=== PATIENT | male | born 1995 | race Caucasian/White ===

== ENCOUNTER 2021-12-03 08:21 | Outpatient (CLI) | payer OTHER, SELFPAY ==
[2021-12-03 12:21] LABS: Absolute Lymphocyte Count 1.82 X10^3/uL (0.83-4.51); Absolute Neutrophil Count 2.1 X10^3/uL (2.0-7.7); Basophil# 0.03 X10^3/uL; Basophil% 0.7 % (0-1); Eosinophil# 0.08 X10^3/uL; Eosinophils% 1.8 % (0-5); Hematocrit 42.2 % (40-54); Hemoglobin 13.9 g/dL (13.0-16.5); Lymphocyte # 1.82 X10^3/ul (0.83-4.51); Lymphocyte % 40.7 % (19-41); Mean Corp Hgb Conc 32.9 g/dL (32-36); Mean Corpuscular Hgb 30.5 pg (27.0-32.0); Mean Corpuscular Volume 92.5 fL (80-94); Mean Platelet Vol. 11.9 fl (6.2-12.0); Monocyte# 0.41 X10^3/uL; Monocyte% 9.2 % (0-10); NRBC Flagged by Analyzer 0 % (0-5); Neutrophil # 2.13 X10^3/uL (2.7-7.7); Neutrophil % 47.6 % (47-70); Platelet Count 159 K/mm3 (150-450); RBC Distribution Width CV 11.9 % (11.6-14.6); Red Blood Count 4.56 M/mm3 (4.6-6.2); White Blood Count 4.5 K/mm3 (4.4-11.0)
[2021-12-03 12:37] LABS: Vitamin D,25 Hydroxy 22.8 ng/mL
[2021-12-03 13:03] LABS: ALB/GLOB Ratio 1.4 RATIO (0.9-2.4); AST(SGOT) 22 U/L (15-37); Alanine Aminotransfer ALT/SGPT 37 U/L (16-61); Albumin, Serum 4.3 g/dL (3.2-5.0); Alkaline Phosphatase 72 U/L (45-117); Anion Gap 4 (5-15); BUN 19 mg/dL (7-18); BUN/Creat Ratio 19.1 RATIO (10-20); Calcium,Total 9.2 mg/dL (8.5-10.1); Chloride 106 mmol/L (98-107); Cholesterol 153 mg/dL (200); EST Glomerular Filtration Rate 98 mL/min (>60); Est Glom Filt Rate - Afr Amer 118 mL/min (>60); Free T3 3.1 pg/mL (2.18-3.98); Glucose 86 mg/dL (74-106); High Density Lipoprotein 61 mg/dL; Potassium 4.4 mmol/L (3.5-5.1); Protein, Total 7.3 g/dL (6.4-8.2); Sodium Level 138 mmol/L (136-145); T4 Free Direct 0.92 ng/dL (0.76-1.46); Thyroid Stim Hormone (TSH) 1.49 uIU/mL (0.358-3.74); Triglycerides 52 mg/dL; Very Low Density Lipoprotein 10 mg/dL (5-40)
== END 2021-12-03 23:59 | disposition home or self-care (01) ==
LOC: BIMLAB 08:22
PROVIDERS: PCP Internal Medicine; Referring Provider Internal Medicine; Visit Provider Internal Medicine
DX: F41.9 Anxiety disorder, unspecified (principal); E55.9 Vitamin D deficiency, unspecified; F32.A Depression, unspecified; Z13.220 Encounter for screening for lipoid disorders; Z13.1 Encounter for screening for diabetes mellitus
CPT/HCPCS: 36415; 80053; 80061; 82306; 83036; 84439; 84443; 84481; 85025

== ENCOUNTER → 2024-02-08 | Outpatient (CLI) | payer OTHER, SELFPAY ==
[2024-02-08 10:41] LABS: Absolute Lymphocyte Count 1.74 X10^3/uL (0.83-4.51); Absolute Neutrophil Count 2.1 X10^3/uL (2.0-7.7); Basophil# 0.02 X10^3/uL; Basophil% 0.5 % (0-1); Eosinophil# 0.04 X10^3/uL; Eosinophils% 0.9 % (0-5); Hemoglobin 13.9 g/dL (13.0-16.5); Lymphocyte # 1.74 X10^3/ul (0.83-4.51); Lymphocyte % 40.7 % (19-41); Mean Corp Hgb Conc 32.3 g/dL (32-36); Mean Corpuscular Volume 92.9 fL (80-94); Mean Platelet Vol. 11.6 fl (6.2-12.0); Monocyte# 0.35 X10^3/uL; Monocyte% 8.2 % (0-10); NRBC Flagged by Analyzer 0 % (0-5); Neutrophil # 2.11 X10^3/uL (2.7-7.7); Neutrophil % 49.5 % (47-70); Platelet Count 197 K/mm3 (150-450); RBC Distribution Width CV 12.4 % (11.6-14.6); RBC Distribution Width SD 42.3 fl (35.1-43.9); Red Blood Count 4.63 M/mm3 (4.6-6.2); White Blood Count 4.3 K/mm3 (4.4-11.0)
[2024-02-08 11:02] LABS: Vitamin D,25 Hydroxy 33.2 ng/mL
[2024-02-08 11:11] LABS: ALB/GLOB Ratio 1.4 RATIO (0.9-2.4); AST(SGOT) 22 U/L (15-37); Alanine Aminotransfer ALT/SGPT 27 U/L (16-61); Albumin, Serum 4.3 g/dL (3.2-5.0); Alkaline Phosphatase 75 U/L (45-117); Anion Gap 1 (5-15); BUN 18 mg/dL (7-18); BUN/Creat Ratio 16.1 RATIO (10-20); Calcium,Total 9.3 mg/dL (8.5-10.1); Chloride 108 mmol/L (98-107); Cholesterol 148 mg/dL (200); Creatinine, Serum 1.12 mg/dL (0.70-1.30); EST Glomerular Filtration Rate 84 mL/min (>60); Est Glom Filt Rate - Afr Amer 102 mL/min (>60); Glucose 83 mg/dL (74-106); High Density Lipoprotein 58 mg/dL; Potassium 4.1 mmol/L (3.5-5.1); Protein, Total 7.3 g/dL (6.4-8.2); Sodium Level 138 mmol/L (136-145); Thyroid Stim Hormone (TSH) 1.17 uIU/mL (0.358-3.74); Triglycerides 50 mg/dL; Very Low Density Lipoprotein 10 mg/dL (5-40)
== END | disposition home or self-care (01) ==
LOC: LAB 09:52
PROVIDERS: PCP Internal Medicine; Visit Provider Internal Medicine
DX: Z00.00 Encounter for general adult medical examination without abnormal findings (principal); E55.9 Vitamin D deficiency, unspecified; F41.9 Anxiety disorder, unspecified; F32.A Depression, unspecified; Z13.220 Encounter for screening for lipoid disorders
CPT/HCPCS: 36415; 80053; 80061; 82306; 84443; 85025

== ENCOUNTER → 2025-03-27 | Outpatient (CLI) | payer OTHER, SELFPAY ==
[2025-03-27 11:26] LABS: Hematocrit 43.4 % (40-54); Hemoglobin 14.7 g/dL (13.0-16.5); Immature Granulocytes Count 0.010 X10^3/uL (0.0-0.0); Mean Corp Hgb Conc 33.9 g/dL (32-36); Mean Corpuscular Volume 91.4 fL (80-94); Mean Platelet Vol. 11.4 fl (6.2-12.0); NRBC Flagged by Analyzer 0 % (0-5); Platelet Count 191 K/mm3 (150-450); RBC Distribution Width CV 11.9 % (11.6-14.6); RBC Distribution Width SD 39.8 fl (35.1-43.9); Red Blood Count 4.75 M/mm3 (4.6-6.2); White Blood Count 4.6 K/mm3 (4.4-11.0)
[2025-03-27 12:18] LABS: Cholesterol 145 mg/dL (<=200); Low Density Lipoprotein Calc. 72 mg/dL; Triglycerides 45 mg/dL; Very Low Density Lipoprotein 9 mg/dL (5-40); cholesterol:hdl ratio screen 2.26
[2025-03-27 12:32] LABS: AST(SGOT) 21 U/L (<=37); Alanine Aminotransfer ALT/SGPT 15 U/L (<=46); Albumin, Serum 4.8 g/dL (3.5-5.0); Alkaline Phosphatase 63 U/L (40-129); Anion Gap 12 (5-15); BUN 18 mg/dL (4-19); BUN/Creat Ratio 17.0 RATIO (10-20); Calcium,Total 9.5 mg/dL (7.6-11.0); Carbon Dioxide 24.6 mmol/L (21.0-32.0); Chloride 104 mmol/L (98-108); Globulin 2.3 g/dL (2.2-4.2); Glucose 89 mg/dL (70-99); Potassium 4.5 mmol/L (3.3-5.1)
[2025-03-27 12:51] LABS: Vitamin D,25 Hydroxy 32.1 ng/mL (30-100)
--- OUTSIDE RECORDS SUMMARY | 2025-03-27 18:52 | XMS RPT_ITS | CCD ---
Author Organization [facility] Care Team Providers Care Field Worker Name Role Phone Dr. Mari Blackmon Attending Provider [phone] Mari Blackmon Attending Unavailable Mari Blackmon Primary Care Unavailable Mari Blackmon Attending Unavailable Mari Blackmon Attending Unavailable Mari Blackmon Primary Care Unavailable Neymar CHEN, Dr. Guerra Primary Care Provider [phone] Neymar CHEN, Dr. Guerra Attending Provider Allergies Allergy Classification Reported Allergen(s) Allergy Type Date of Onset Reaction(s) Facility (3 sources) Soy protein; Translations: [soy] Allergy to substance 2 dives, difficulty breathing [facility] Medications Current Medications Medication Drug Class(es) Dates Sig (Normalized) Sig (Original) cetirizine hydrochloride 10 mg oral tablet (2 sources) Histamine-1 Receptor Antagonist Start: 11-26-2021 take 10 mg by mouth once daily Cetirizine Active 10 MG PO DAILY November 26, 2021 9:14am cholecalciferol 0.025 mg oral tablet (1 source) Vitamin D Start: 02-08-2024 take 1 tablet by mouth once daily Cholecalciferol (Vitamin D3) 25 mcg (1,000 unit) tablet Active 25 ug PO DAILY February 08, 2024 12:00am Multivitamin preparation (1 source) Start: 11-26-2021 take 1 tablet by mouth once daily Multivitamin Active 1 TABLET PO DAILY November 26, 2021 9:13am sertraline 50 mg oral tablet (8 sources) Serotonin Reuptake Inhibitor Start: 02-24-2023 End: 03-27-2025 take 1 tablet by mouth once daily Sertraline 50 mg tablet Active 50 mg PO DAILY 90 3 March 27, 2025 9:47am Start: 11-26-2021 take 75 mg by mouth once daily Sertraline Active 75 MG PO DAILY November 26, 2021 9:14am Start: 11-26-2021 End: 02-24-2023 Sertraline 50 mg tablet Disc ontinued 75 mg PO DAILY 120 3 February 12, 2022 9:10am February 24, 2023 8:02am Completed/Discontinued Medications Medication Drug Class(es) Dates Sig (Normalized) Sig (Original) Multivitamin tablet (1 source) Start: 11-26-2021 End: 02-08-2024 Multivitamin tablet Discontinued 1 {tbl} PO DAILY November 26, 2021 12:00am February 08, 2024 8:49am promethazine hydrochloride 25 mg oral tablet (1 source) Phenothiazine Start: 08-26-2022 End: 02-24-2023 take 1 tablet by mouth three times daily as needed for nausea and vomiting Promethazine 25 mg tablet Discontinued 25 mg PO THREE TIMES A DAY as needed for nausea and vomiting 14 0 August 26, 2022 1:00am February 24, 2023 8:02am Problems Active Problems Problem Classification Problem Date Documented Date Episodic/Chronic Anxiety disorders (4 sources) Mixed anxiety and depressive disorder; Translations: [Anxiety disorder, unspecified] Onset: 02-08-2024 Chronic Mood disorders (1 source) Mood disorders; Translations: [Depression, unspecified] Onset: 02-08-2024 Noninfectious gastroenteritis (1 source) Gastroenteritis; Translations: [Noninfective gastroenteritis and colitis, unspecified] 08-26-2022 Episodic Nutritional deficiencies (3 sources) Vitamin D deficiency; Translations: [Vitamin D deficiency, unspecified] Onset: 02-08-2024 11-26-2021 Chronic Other connective tissue disease (1 source) Cyst of tendon sheath; Translations: [Other specified disorders of synovium and tendon, unspecified site] 02-24-2023 Episodic Other connective tissue disease (1 source) Foot pain; Translations: [Pain in right foot] 03-27-2025 Episodic Other screening for suspected conditions (not mental disorders or infectious disease) (2 sources) Patient encounter status; Translations: [Encounter for screening for diabetes mellitus] 11-26-2021 Episodic Unclassified (1 source) Cyst of tendon sheath Unclassified (1 source) Right foot pain Unclassified (1 source) M67.80 - Other specified disorders of synovium and tendon, unspecified site,M79.671 - Pain in right foot Past or Other Problems Problem Classification Problem Date Documented Da te Episodic/Chronic Other connective tissue disease (1 source) Other specified disorders of synovium and tendon, unspecified site; Translations: [Other specified disorders of synovium and tendon, unspecified site] Onset: 02-24-2023 Episodic Results Test Name Value Interpretation Reference Range Facility CBC W/Diff, Automatedon 01-14 Absolute Lymph 1.74 X10 3/uL Normal 0.83-4.51 [facility] Comment on above: Performed By: #### L 500.4050, L506.1000, L100.0100, L501.9520, L500.4100 #### [facility] [address] [place], [address] Absolute Neut 2.1 X10 3/uL Normal 2.0-7.7 [facility] Comment on above: Performed By: #### L 500.4050, L506.1000, L100.0100, L501.9520, L500.4100 #### [facility] [address] [place], [address] Basophils/100 WBC (Bld) 0.5 % Normal 0-1 [facility] Comment on above: Performed By: #### L 500.4050, L506.1000, L100.0100, L501.9520, L500.4100 #### [facility] [address] [place], [address] Eosinophils/100 WBC (Bld) 0.9 % Normal 0-5 [facility] Comment on above: Performed By: #### L 500.4050, L506.1000, L100.0100, L501.9520, L500.4100 #### [facility] [address] [place], [address] Erythrocyte distribution width (RBC) [Ratio] 12.4 % Normal 11.6-14.6 [facility] Comment on above: Performed By: #### L 500.4050, L506.1000, L100.0100, L501.9520, L500.4100 #### [facility] [address] [place], [address] Hematocrit (Bld) [Volume fraction] 43.0 % Normal 40-54 [facility] Comment on above: Performed By: #### L 500.4050, L506.1000, L100.0100, L501.9520, L500.4100 #### [facility] [address] [place], [address] Hemoglobin (Bld) [Mass/Vol] 13.9 g/dL Normal 13.0-16.5 [facility] Comment on above: Performed By: #### L 500.4050, L506.1000, L100.0100, L501.9520, L500.4100 #### [facility] [address] [place], [address] IG% 0.200 Normal 0.0-0.9 [facility] Comment on above: Result Comment: IG% - Immature Granulocytes (promyelocytes, myelocytes and metamyelocytes) > 1% indicates that a LEFT SHIFT is Present. Performed By: #### L 500.4050, L506.1000, L100.0100, L501.9520, L500.4100 #### [facility] [address] [place], [address] Lymphocytes/100 WBC (Bld) 40.7 % Normal 19-41 [facility] Comment on above: Performed By: #### L 500.4050, L506.1000, L100.0100, L501.9520, L500.4100 #### [facility] [address] [place], [address] MCH (RBC) [Entitic mass] 30.0 pg Normal 27.0-32.0 [facility] Comment on above: Performed By: #### L 500.4050, L506.1000, L100.0100, L501.9520, L500.4100 #### [facility] [address] [place], [address] MCHC (RBC) [Mass/Vol] 32.3 g/dL Normal 32-36 [facility] Comment on above: Performed By: #### L 500.4050, L506.1000, L100.0100, L501.9520, L500.4100 #### [facility] [address] [place], [address] MCV (RBC) [Entitic vol] 92.9 fL Normal 80-94 [facility] Comment on above: Performed By: #### L 500.4050, L506.1000, L100.0100, L501.9520, L500.4100 #### [facility] [address] [place], [address] Monocytes/100 WBC (Bld) 8.2 % Normal 0-10 [facility] Comment on above: Performed By: #### L 500.4050, L506.1000, L100.0100, L501.9520, L500.4100 #### [facility] [address] [place], [address] Neutrophils/100 WBC (Bld) 49.5 % Normal 47-70 [facility] Comment on above: Performed By: #### L 500.4050, L506.1000, L100.0100, L501.9520, L500.4100 #### [facility] [address] [place], [address] Nucleated RBC (Bld) [#/Vol] 0 10*3/uL Normal 0-5 [facility] Comment on above: Performed By: #### L 500.4050, L506.1000, L100.0100, L501.9520, L500.4100 #### [facility] [address] [place], [address] Platelet mean volume (Bld) [Entitic vol] 11.6 fL Normal 6.2-12.0 [facility] Comment on above: Performed By: #### L 500.4050, L506.1000, L100.0100, L501.9520, L500.4100 #### [facility] [address] [place], [address] Platelets (Bld) [#/Vol] 197 10*3/uL Normal 150-450 [facility] Comment on above: Performed By: #### L 500.4050, L506.1000, L100.0100, L501.9520, L500.4100 #### [facility] [address] [place], [address] RBC (Bld) [#/Vol] 4.63 10*6/uL Normal 4.6-6.2 [facility] Comment on above: Performed By: #### L 500.4050, L506.1000, L100.0100, L501.9520, L500.4100 #### [facility] [address] [place], [address] RDW SD 42.3 fl Normal 35.1-43.9 [facility] Comment on above: Performed By: #### L 500.4050, L506.1000, L100.0100, L501.9520, L500.4100 #### [facility] [address] [place], [address] WBC (Bld) [#/Vol] 4.3 10*3/uL Low 4.4-11.0 [facility] Comment on above: Performed By: #### L 500.4050, L506.1000, L100.0100, L501.9520, L500.4100 #### [facility] [address] [place], [address] Comprehensive Metabolic Prof cton 02-08-2024 Albumin [Mass/Vol] 4.3 g/dL Normal 3.2-5.0 [facility] Comment on above: Performed By: #### L 500.4050, L506.1000, L100.0100, L501.9520, L500.4100 #### [facility] [address] [place], [address] Albumin/Globulin [Mass ratio] 1.4 {ratio} Normal 0.9-2.4 [facility] Comment on above: Performed By: #### L 500.4050, L506.1000, L100.0100, L501.9520, L500.4100 #### [facility] [address] [place], [address] ALK P 75 U/L Normal 45-117 [facility] Comment on above: Performed By: #### L 500.4050, L506.1000, L100.0100, L501.9520, L500.4100 #### [facility] [address] [place], [address] ALT [Catalytic activity/Vol] 27 U/L Normal 16-61 [facility] Comment on above: Performed By: #### L 500.4050, L506.1000, L100.0100, L501.9520, L500.4100 #### [facility] [address] [place], [address] AST [Catalytic activity/Vol] 22 U/L Normal 15-37 [facility] Comment on above: Performed By: #### L 500.4050, L506.1000, L100.0100, L501.9520, L500.4100 #### [facility] [address] [place], [address] Bilirubin [Mass/Vol] 0.50 mg/dL Normal 0.20-1.00 [facility] Comment on above: Result Comment: For patients on eltrombopag therapy, use of Dimension [place] TBIL is not recommended. Performed By: #### L 500.4050, L506.1000, L100.0100, L501.9520, L500.4100 #### [facility] [address] [place], [address] BUN/CRE 16.1 RATIO Normal 10-20 [facility] Comment on above: Performed By: #### L 500.4050, L506.1000, L100.0100, L501.9520, L500.4100 #### [facility] [address] [place], [address] CA,Total 9.3 mg/dL Normal 8.5-10.1 [facility] Comment on above: Performed By: #### L 500.4050, L506.1000, L100.0100, L501.9520, L500.4100 #### [facility] [address] [place], [address] Chloride [Moles/Vol] 108 mmol/L High 98-107 [facility] Comment on above: Performed By: #### L 500.4050, L506.1000, L100.0100, L501.9520, L500.4100 #### [facility] [address] [place], [address] CO2 [Moles/Vol] 29.0 mmol/L Normal 21.0-32.0 [facility] Comment on above: Performed By: #### L 500.4050, L506.1000, L100.0100, L501.9520, L500.4100 #### [facility] [address] [place], [address] Creatinine [Mass/Vol] 1.12 mg/dL Normal 0.70-1.30 [facility] Comment on above: Result Comment: The validity of the calculated GFR GFRAA in patients over 70 years has not been determined. Clinical correlation is essential. Performed By: #### L 500.4050, L506.1000, L100.0100, L501.9520, L500.4100 #### [facility] [address] [place], [address] EST GFR - AA 102 mL/min Normal >60 [facility] Comment on above: Result Comment: Afri can Kosovan GFR Calc Performed By: #### L 500.4050, L506.1000, L100.0100, L501.9520, L500.4100 #### [facility] [address] [place], [address] GAP 1 Low 5-15 [facility] Comment on above: Performed By: #### L 500.4050, L506.1000, L100.0100, L501.9520, L500.4100 #### [facility] [address] [place], [address] GFR/1.73 sq M.predicted among non-blacks MDRD (S/P/Bld) [Vol rate/Area] 84 mL/min/{1.73_m2} Normal >60 [facility] Comment on above: Result Comment: Non- GFR Calc Performed By: #### L 500.4050, L506.1000, L100.0100, L501.9520, L500.4100 #### [facility] [address] [place], [address] Globulin (S) [Mass/Vol] 3.0 g/dL Normal 2.2-4.2 [facility] Comment on above: Performed By: #### L 500.4050, L506.1000, L100.0100, L501.9520, L500.4100 #### [facility] [address] [place], [address] Glucose [Mass/Vol] 83 mg/dL Normal 74-106 [facility] Comment on above: Performed By: #### L 500.4050, L506.1000, L100.0100, L501.9520, L500.4100 #### [facility] [address] [place], [address] Potassium [Moles/Vol] 4.1 mmol/L Normal 3.5-5.1 [facility] Comment on above: Performed By: #### L 500.4050, L506.1000, L100.0100, L501.9520, L500.4100 #### [facility] [address] [place], [address] Sodium [Moles/Vol] 138 mmol/L Normal 136-145 [facility] Comment on above: Performed By: #### L 500.4050, L506.1000, L100.0100, L501.9520, L500.4100 #### [facility] [address] [place], [address] T PROT 7.3 g/dL Normal 6.4-8.2 [facility] Comment on above: Performed By: #### L 500.4050, L506.1000, L100.0100, L501.9520, L500.4100 #### [facility] [address] [place], [address] Urea nitrogen [Mass/Vol] 18 mg/dL Normal 7-18 [facility] Comment on above: Performed By: #### L 500.4050, L506.1000, L100.0100, L501.9520, L500.4100 #### [facility] [address] [place], [address] Lipid Profileon 02-08-2024 Cholesterol [Mass/Vol] 148 mg/dL Normal 200 [facility] Comment on above: Result Comment: <200 mg/dL Desirable 200-240 mg/dL Borderline >240 mg/dL High Risk Performed By: #### L 500.4050, L506.1000, L100.0100, L501.9520, L500.4100 #### [facility] [address] [place], [address] Cholesterol in HDL [Mass/Vol] 58 mg/dL Normal [facility] Comment on above: Result Comment: The drugs N-Acetylcysteine and Metamizole may falsely depress this assay. Reference Range HDL <40 mg/dL Low HDL Cholesterol HDL >or= 60 mg/dL High HDL Cholesterol Performed By: #### L 500.4050, L506.1000, L100.0100, L501.9520, L500.4100 #### [facility] [address] [place], [address] Cholesterol in LDL [Mass/Vol] 80 mg/dL Normal 0-130 [facility] Comment on above: Performed By: #### L 500.4050, L506.1000, L100.0100, L501.9520, L500.4100 #### [facility] [address] [place], [address] Cholesterol in VLDL [Mass/Vol] 10 mg/dL Normal 5-40 [facility] Comment on above: Performed By: #### L 500.4050, L506.1000, L100.0100, L501.9520, L500.4100 #### [facility] [address] [place], [address] Triglyceride [Mass/Vol] 50 mg/dL Normal [facility] Comment on above: Result Comment: The drugs N-Acetylcysteine and Metamizole may falsely depress this assay. Serum Triglycerides Reference Interval Normal <150 mg/dL Borderline high 150 - 199 mg/dL High 200 - 499 mg/dL Very High > or = 500 mg/dL Performed By: #### L 500.4050, L506.1000, L100.0100, L501.9520, L500.4100 #### [facility] [address] [place], [address] MR/BMSChidi 02-08-2024 MR/BMS.IMB [facility] [address] [place], [place] [address] OFFICE VISIT Date of Service: 02/08/24 MR#: [id number] Acct: [id number] Name: CRISTAL ROQUE Rep #: [id number] : 1995 Provider: Dr. Mari cormier MD Age/Sex: 28/M Location: [facility] Status: Signed Intake Vital Signs 02/24/23 08:00 02/08/24 08:54 Height 6 ft 1 in 6 ft 1 in Weight: 175 lb 2 oz 169 lb 2 oz BMI 23.1 22.3 BP 109/96 H 117/76 Blood Pressure Location Rt brachial Lt brachial Position Sitting Sitting Respiration 16 16 Pulse 56 L 58 L Pulse Source Monitor Monitor Temp 98.4 F 98.2 F Temp Source Temporal Temporal Pulse Oximetry (%) 96 95 Oxygen Delivery Method room air room air Intake Visit Reasons: Annual/Physical Chief Complaint: annual Manager Banquet Required: No Accompanied by: Self Is patient in pain?: No Allergies soy Allergy (Mild, Verified 02/08/24 08:49) dives, difficulty breathing Medications ???Medication ???Instructions ???Recorded ???Confirmed ???Type cetirizine 10 mg tablet 10 mg PO DAILY PRN 11/26/21 02/08/24 History cholecalciferol (vitamin D3) 25 25 mcg PO DAILY 02/08/24 02/08/24 History mcg (1,000 unit) tablet sertraline 50 mg tablet 50 mg PO DAILY #90 tabs 02/08/24 02/08/24 Rx PFSH Medical History Gastroenteritis Anxiety and depression Asthma Seasonal allergies Surgical History History of wisdom tooth extraction History of tonsillectomy Family History Grandfather Hypertension Myocardial infarction Colon cancer Grandmother Thyroid disorder Other Anxiety Autoimmune disease Depression Mental disorder Psychiatric care Social History Smoking Status: Never smoker alcohol intake: never substance use type: does not use what type of physical activity do you participate in: walking and running frequency: 1-2 times per week HPI HPI Chief Complaint: annual Details: CRISTAL ROQUE, is a 28 M who presents to the office today for annual wellness checkup. 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 He has had several promotions over the last few years and he is doing quite well there he states. He continues to exercise on a regular basis, going to the gym several days out of the week, doing a combination of some weights, as well as cardio exercise. Continues to eat a good high-quality diet, adequate fruits and vegetables, meats, and similar products. Does avoid most processed foods. He feels well and has no new specific complaints or issues he wanted to address specifically. His anxiety and depression symptoms have been well-controlled on the current regimen of sertraline as ordered. 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 I do not have any specific reason why we should change it as we discussed. I have not seen any specific information about any types of contamination concerns. Therefore we decided to stay on the current prescription. Review of systems per chart. Physical exam. Vital signs on chart. PERRLA. Sclera are clear. TMs are unremarkable with normal light reflexes. Canals are unremarkable. Posterior pharynx is unremarkable. Good dentition. No cervical or supraclavicular lymph nodes enlarged or tender. No clear thyromegaly. No thyroid nodules readily palpable. Lungs are without wheeze, rhonchi, rales. No E/A changes are heard. Heart is regular. Not tachycardic. No clear murmur, rub, or gallop is identified. The abdomen is soft. Bowel sounds are present. No significant leg edema. Cranial nerve examination 2 through 12 are grossly unremarkable nonlateralizing. No obvious rashes. No obvious significant skin lesions are identified. ROS Const Constitutional: No body ache, chills, excessive sweating, fatigue, fever(s), frequent falls, headache(s), snoring, weakness or change in appetite Eyes Eyes: No blurry vision, change in vision, eye pain or Light sensitivity ENT ENT: No abnormal hearing, ear or mastoid pain, tinnitus, nasal congestion, headache(s), neck pain or sore throat Resp Respiratory: No cough, shortness of breath, snoring or wheezing Cardio Cardiology: No chest pain at rest, chest pain with exertion, excessive sweating, dyspnea on exertion, lightheadedness, orthopnea or palpitations Gastro GI: No abdominal pain, change in bowel habits, constipation, cramping, diarrhea, nausea/dyspepsia or vomiting Genitourinary Male (more content not included)... Normal [facility] Thyroid Stim Hormone (TSH)on 02-08-2024 TSH 1.17 uIU/mL Normal 0.358-3.74 [facility] Comment on above: Performed By: #### L 500.4050, L506.1000, L100.0100, L501.9520, L500.4100 #### [facility] [address] [place], [address] Vitamin D,25 Hydroxyon 02-07 Vitamin D 25-OH 33.2 ng/mL Normal [facility] Comment on above: Result Comment: Tricia min D 25(OH) Status Range Deficiency <20 ng/mL (50nmol/L) Insufficiency 20 - 30 ng/mL (50 - 75 nmol/L) Sufficiency 30 - 100 ng/mL (75 - 250 nmol/L) Toxicity >100 ng/mL (>250 nmol/L) Performed By: #### L 500.4050, L506.1000, L100.0100, L501.9520, L500.4100 #### [facility] [address] [place], [address] MR/Irina 02-24-2023 MR/SHERON.MEGHA [facility] [address] [place] [address] OFFICE VISIT Date of Service: 02/24/23 MR#: [id number] Acct: [id number] Name: CRISTAL ROQUE Rep #: [id number] : 1995 Provider: Dr. Mari cormier MD Age/Sex: 27/M Location: [facility] Status: Signed Intake Vital Signs 08/26/22 06:30 02/24/23 08:00 Height 6 ft 1 in 6 ft 1 in Weight: 169 lb 175 lb 2 oz BMI 22.3 23.1 BP 120/74 109/96 H Blood Pressure Location Lt brachial Rt brachial Position Sitting Sitting Respiration 16 16 Pulse 121 H 56 L Pulse Source Monitor Monitor Temp 99.3 F H 98.4 F Temp Source Temporal Temporal Pulse Oximetry (%) 97 96 Oxygen Delivery Method room air room air Intake Visit Reasons: Annual Chief Complaint: area on right ankle and right foot Manager Banquet Required: No Is patient in pain?: No Allergies soy Allergy (Mild, Verified 02/24/23 08:01) dives, difficulty breathing Medications cetirizine 10 mg tablet 10 mg PO DAILY PRN 11/26/21 [History Confirmed 02/24/23] multivitamin 1 tab PO DAILY 11/26/21 [History Confirmed 02/24/23] sertraline 50 mg tablet 50 mg PO DAILY 02/24/23 [History] Nurse's Note: [facility] Medical History Anxiety and depression Asthma Gastroenteritis Seasonal allergies Surgical History History of tonsillectomy History of wisdom tooth extraction Family History Grandfather Hypertension Myocardial infarction Colon cancer Grandmother Thyroid disorder Other Anxiety Autoimmune disease Depression Mental disorder Psychiatric care Social History Smoking Status: Never smoker alcohol intake: never substance use type: does not use what type of physical activity do you participate in: walking and running frequency: 1-2 times per week HPI HPI Chief Complaint: area on right ankle and right foot Details: CRISTAL ROQUE, is a 27 M who presents to the office today for annual wellness checkup. 27-year-old male, who is generally quite healthy. He does have vitamin D deficiency but has been taking vitamin D over the last year. We will update his labs on that. He has a history of anxiety, some depressive symptoms. However he is in a very good position he states at this point in time and he weaned himself down from 75 mg of Zoloft down to 50 at this point and has been quite stable. He is ready to decrease again at this time. 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 He enjoys his job. He is very busy but he enjoys that. He is doing some walking on a regular basis still but not as much as he would like. He has a good high-quality diet, with plenty of vegetables, some fruits and meats. Avoiding processed foods. He had felt that he may have some food intolerances and is trying to sort through what they may be. He believes it may be related to Allium, i.e. garlic or onions. Several other things that he noted. He wondered about how to proceed. I discussed that I would simply do an avoidance trial being very diligent about it and see how he feels and then go back and try Allium type plants once again and see if that causes or duplicates his symptoms. He can try that several times before coming to a final conclusion. I advised him that allergy testing is usually not very helpful in this circumstance. Review of systems per chart. This pain, shortness of breath. No wheeze cough or congestion. No fever or chills. No nausea or vomiting. Appetite is good. He has a small lump, on the lateral aspect of the right foot. He developed this after he had an ankle sprain in high school. Does not necessarily bother him in terms of any pain or anything of that nature but he did want to have it looked at. Physical exam. Vital signs on chart. EOMI. PERRLA. Sclera are clear. TMs are unremarkable with normal light reflexes. Canals are unremarkable. Posterior pharynx is unremarkable. Good dentition. No cervical or supraclavicular lymph nodes enlarged or tender. No clear thyromegaly. No thyroid nodules readily palpable. Lungs are without wheeze, rhonchi, rales. No E/A changes are heard. Heart is regular. Not tachycardic. No clear murmur, rub, or gallop is identified. The abdomen is soft. Bowel sounds are present. Nontender nondistended abdomen. No clear palpable masses in the abdomen. No significant leg edema. Cranial nerve examination 2 through 12 are grossly unremarkable nonlateralizing. Deep tendon reflexes are 2/4 and symmetric at the bicep, tricep, Achilles, patella. No ankle clonus. No obvious rashes. On the right foot, dorsum, overlying the fifth metatarsal head, there is a small lump consistent with a tendon sheath cyst. Th (more content not included)... Normal [facility] Absolute lymphocyte counton 12-03-2021 Lymphocytes Auto (Unsp spec) [#/Vol] 1.82 10*3/uL 0.83-4.51 [facility] Work Phone: Basophil percentageon 2021 Basophils/100 WBC (Bld) 0.7 % 0-1 [facility] Work Phone: Bilirubin [Mass/Vol] 0.40 mg/dL 0.20-1.00 [facility] Work Phone: Comment on above: For patients on eltr ombopag therapy, use of Dimension [place] TBIL is not recommended. Chloride [Moles/Vol] 106 mmol/L 98-107 [facility] Work Phone: Cholesterol [Mass/Vol] 153 mg/dL <200 [facility] Work Phone: Comment on above: <200 mg/dL Desirable 200-240 mg/dL Borderline >240 mg/dL High Risk Eosinophils/100 WBC (Bld) 1.8 % 0-5 [facility] Work Phone: Glucose [Mass/Vol] 86 mg/dL 74-106 [facility] Work Phone: Neutrophils (Bld) [#/Vol] 2.1 10*3/uL 2.0-7.7 [facility] Work Phone: Neutrophils/100 WBC (Bld) 47.6 % 47-70 [facility] Work Phone: Potassium [Moles/Vol] 4.4 mmol/L 3.5-5.1 [facility] Work Phone: Protein [Mass/Vol] 7.3 g/dL 6.4-8.2 [facility] Work Phone: Sodium [Moles/Vol] 138 mmol/L 136-145 [facility] Work Phone: Triglyceride [Mass/Vol] 52 mg/dL [facility] Work Phone: Comment on above: The drugs N-Acetylcy steine and Metamizole may falsely depress this assay.Serum Triglycerides Reference Interval Normal <150 mg/dL Borderline high 150 - 199 mg/dL High 200 - 499 mg/dL Very High > or = 500 mg/dL WBC (Bld) [#/Vol] 4.5 10*3/uL 4.4-11.0 [facility] Work Phone: Blood erythrocytes count (nu mber/volume)on 12-03-2021 RBC (Bld) [#/Vol] 4.56 10*6/uL 4.6-6.2 [facility] Work Phone: Blood hemoglobin measurement (mass/volume)on 12-03-2021 Hemoglobin (Bld) [Mass/Vol] 13.9 g/dL 13.0-16.5 [facility] Work Phone: Blood lymphocytes/100 leukoc yteson 12-03-2021 Lymphocytes/100 WBC (Bld) 40.7 % 19-41 [facility] Work Phone: Blood monocytes/100 leukocyt eson 12-03-2021 Monocytes/100 WBC (Bld) 9.2 % 0-10 [facility] Work Phone: Blood platelet mean volumeon 12-03-2021 Platelet mean volume (Bld) [Entitic vol] 11.9 fL 6.2-12.0 [facility] Work Phone: Determination of erythrocyte mean corpuscular volume (MCV)on 12-03-2021 MCV (RBC) [Entitic vol] 92.5 fL 80-94 [facility] Work Phone: Hematocrit Auto (Bld) [Volum e fraction]on 12-03-2021 Hematocrit (Bld) [Volume fraction] 42.2 % 40-54 [facility] Work Phone: Laboratory - Chemistry and C hemistry - challengeon 12-03-2021 ALP [Catalytic activity/Vol] 72 U/L 45-117 [facility] Work Phone: ALT [Catalytic activity/Vol] 37 U/L 16-61 [facility] Work Phone: CO2 [Moles/Vol] 28.0 mmol/L 21.0-32.0 [facility] Work Phone: Free T4 [Mass/Vol] 0.92 ng/dL 0.76-1.46 [facility] Work Phone: Globulin (S) [Mass/Vol] 3.0 g/dL 2.2-4.2 [facility] Work Phone: Urea nitrogen/Creatinine [Mass ratio] 19.1 mg/mg 10-20 [facility] Work Phone: Laboratory - Hematology and Cell countson 12-03-2021 Erythrocyte distribution width (RBC) [Entitic vol] 40.0 fL 35.1-43.9 [facility] Work Phone: Erythrocyte distribution width (RBC) [Ratio] 11.9 % 11.6-14.6 [facility] Work Phone: Immature granulocytes/100 WBC (Bld) 0.000 % 0.0-0.9 [facility] Work Phone: Comment on above: IG% - Immature Granu locytes (promyelocytes, myelocytes and metamyelocytes) > 1% indicates that a LEFT SHIFT is Present. MCH (RBC) [Entitic mass] 30.5 pg 27.0-32.0 [facility] Work Phone: Nucleated RBC/100 WBC (Bld) [Ratio] 0 % 0-5 [facility] Work Phone: MCHC Auto (RBC) [Mass/Vol]on 12-03-2021 MCHC (RBC) [Mass/Vol] 32.9 g/dL 32-36 [facility] Work Phone: No Panel Informationon 12-03 Estimated GFR (MDRD) Amer 118 mL/min >60 [facility] Work Phone: Comment on above: GFR Calc Estimated GFR (MDRD) Non-Af Amer 98 mL/min >60 [facility] Work Phone: Comment on above: Non- GFR Calc Free Triiodothyronine (T3) pg/dL 3.1 pg/mL 2.18-3.98 [facility] Work Phone: Thyroid Stimulating Hormone (TSH) 1.49 uIU/mL 0.358-3.74 [facility] Work Phone: Vitamin D 25-Hydroxy 22.8 ng/mL [facility] Work Phone: Comment on above: Vitamin D 25(OH) Sta tus Range Deficiency <20 ng/mL (50nmol/L) Insufficiency 20 - 30 ng/mL (50 - 75 nmol/L) Sufficiency 30 - 100 ng/mL (75 - 250 nmol/L) Toxicity >100 ng/mL (>250 nmol/L) Platelets bldon 12-03-2021 Platelets (Bld) [#/Vol] 159 10*3/uL 150-450 [facility] Work Phone: Serum or plasma albumin nicanor urement (mass/volume)on 12-03-2021 Albumin [Mass/Vol] 4.3 g/dL 3.2-5.0 [facility] Work Phone: Serum or plasma albumin/glob ulin mass ratioon 12-03-2021 Albumin/Globulin [Mass ratio] 1.4 {ratio} 0.9-2.4 [facility] Work Phone: Serum or plasma calcium nicanor urement (mass/volume)on 12-03-2021 Calcium [Mass/Vol] 9.2 mg/dL 8.5-10.1 [facility] Work Phone: Serum or plasma cholesterol in HDL measurement (mass/volume)on 12-03-2021 Cholesterol in HDL [Mass/Vol] 61 mg/dL [facility] Work Phone: Comment on above: The drugs N-Acetylcy steine and Metamizole may falsely depress this assay. Reference Range HDL <40 mg/dL Low HDL Cholesterol HDL >or= 60 mg/dL High HDL Cholesterol Serum or plasma cholesterol in VLDL measurement (mass/volume)on 12-03-2021 Cholesterol in VLDL [Mass/Vol] 10 mg/dL 5-40 [facility] Work Phone: Serum or plasma creatinine m easurement (mass/volume)on 12-03-2021 Creatinine [Mass/Vol] 1.00 mg/dL 0.70-1.30 [facility] Work Phone: Comment on above: The validity of the calculated GFR & GFRAA in patients over 70 years has not been determined. Clinical correlation is essential. Serum or plasma low density lipoprotein (LDL) cholesterol measurement (mass/volume)on 12-03-2021 Cholesterol in LDL [Mass/Vol] 82 mg/dL 0-130 [facility] Work Phone: Serum or plasma urea nitroge n measurement (mass/volume)on 12-03-2021 Urea nitrogen [Mass/Vol] 19 mg/dL 7-18 [facility] Work Phone: Thin prep Papanicolaou smear with manual screeningon 12-03-2021 Thin prep Papanicolaou smear with manual screening 22 U/L 15-37 [facility] Work Phone: Thin prep Papanicolaou smear with manual screening 4 5-15 [facility] Work Phone: Whole blood hemoglobin A1c/t otal hemoglobin ratio (mass fraction)on 12-03-2021 HbA1c (Bld) [Mass fraction] 5.0 % 3.8-5.6 [facility] Work Phone: Comment on above: Normal < 5.7 % Predi abetic 5.7 - 6.4 % Diabetic >or= 6.5 % Please note range changes. Vital Signs Date Time Vital Sign Value Performing Clinician Faci tuyety 03-27-2025 08:25-0400 Body height 185.[address] Mari Blackmon MD Work Phone: [facility] 03-27-2025 08:25-0400 Body mass index (BMI) [Ratio] 22.7 kg/m2 Dr. Mari Blackmon MD Work Phone: [facility] 03-27-2025 08:25-0400 Body temperature 98.4 [degF] Dr. Mari Blackmon MD Work Phone: [facility] 03-27-2025 08:25-0400 Body weight 78.[address] Mari Blackmon MD Work Phone: [facility] 03-27-2025 08:25-0400 Diastolic blood pressure 77 mm[Hg] Dr. Mari Blackmon MD Work Phone: [facility] 03-27-2025 08:25-0400 Heart rate 57 /min Dr. Mari Blackmon MD Work Phone: [facility] 03-27-2025 08:25-0400 Respiratory rate 16 /min Dr. Mari Blackmon MD Work Phone: [facility] 03-27-2025 08:25-0400 SaO2% (BldA) [Mass fraction] 98 % Dr. Mari Blackmon MD Work Phone: [facility] 03-27-2025 08:25-0400 Systolic blood pressure 128 mm[Hg] Dr. Mari Blackmon MD Work Phone: [facility] 11-26-2021 09:25-0400 Body height 187.[address] Mari Blackmon Work Phone: [facility] Work Phone: 11-26-2021 09:25-0400 Body mass index (BMI) [Ratio] 22.1 kg/m2 Dr. Mari Blackmon Work Phone: [facility] Work Phone: 11-26-2021 09:25-0400 Body temperature 14 [degF] Dr. Mari Blackmon Work Phone: [facility] Work Phone: 11-26-2021 09:25-0400 Body weight 78.[address] Mari Blackmon Work Phone: [facility] Work Phone: 11-26-2021 09:25-0400 Diastolic blood pressure 70 mm[Hg] Dr. Mari Blackmon Work Phone: [facility] Work Phone: 11-26-2021 09:25-0400 Heart rate 62 /min Dr. Mari Blackmon Work Phone: [facility] Work Phone: 11-26-2021 09:25-0400 Respiratory rate 14 /min Dr. Mari Blackmon Work Phone: [facility] Work Phone: 11-26-2021 09:25-0400 SaO2% (BldA) [Mass fraction] 99 % Dr. Mari Blackmon Work Phone: [facility] Work Phone: 11-26-2021 09:25-0400 Systolic blood pressure 126 mm[Hg] Dr. Mari Blackmon Work Phone: [facility] Work Phone: Encounters Encounter Date Encounter Type Care Provider Facility Start: 03-27-2025 End: 03-27-[address] Mari Blackmon MD Work Phone: [facility] Start: 03-27-2025 End: 03-27-[address] Mari Blackmon MD -[facility] Work Phone: Start: 02-14-2024 Encounter for genera l adult medical examination without abnormal findings Mari Blackmon [facility] Start: 02-08-2024 End: 02-08-2024 ambulatory Mari Blackmon Facility:[facility] Start: 02-08-2024 End: 02-08-2024 ambulatory Mari Blackmon Facility:[facility] Start: 02-24-[address] Ralf Blackmon MD Work Phone: [facility] Start: 02-24-2023 End: 02-24-2023 ambulatory Mari Neymar Facility:[facility] Start: 12-03-2021 End: 12-03-[address] Mari Blackmon Work Phone: [facility] Start: 11-26-2021 End: 11-26-[address] Mari Blackmon Work Phone: [facility] Internal Medicine Plan of Treatment Date Care Activity Detail Author CBC W Auto Differential panel - Blood [facility] Comprehensive metabo lic 1999 panel - Serum or Plasma [facility] Hemoglobin A1c/Hemoglobin.total in Blood [facility] Lipid 1995 panel - Serum or Plasma [facility] Thyroid stimulating hormone measurement [facility] Vitamin D, 25-hydroxy measurement [facility] Payers Date Payer Category Payer Self-pay [id number] 2023 Private Health Insurance [id number] Unknown SELF PAY INSURANCE [id number] Unknown [id number] Unknown [id number] Unknown [id number] Social History Date Type Detail Facility Start: [facility]-26-[facility]21 [facility] Work Phone: Start: 1995 Sex Assigned At Male [facility] Start: 03-27-2025 [facility] (finding[facility] Evaluation note Note Date & Type Note Facility Evaluation note Diagnosis Onset Date Anxiety and depression acute [facility] Work Phone: Evaluation note Note Date & Type Note Facility Evaluation note No assessment information availa ble [facility] Work Phone: Hospital Discharge instructions Note Date & Type Note Facility Hospital Discharge instructions Ambulatory OrdersPodiatry Location: None Selected [facility] Work Phone: Chief Complaint and Reason for Visit Chief Complaint [employer], NPP SENT Reason for Visit Anxiety and depressi on Chief Complaint Admit Date Annual/Physical March 27, 2025 8: 19am Family History Relationship Condition Age at Onset Recorded Date/T dany Not Specified Psychiatric care Unknown Anxiety Unknown Autoimmune disease Unknown Depression Unknown Mental disorder Unknown grandfather Hypertension Unknown Myocardial infarction Unknown Malignant neoplasm of colon Unknown grandmother Disorder of thyroid Unknown Summary Purpose Advance Directives No Advanced Directives Records Found Additional Source Comments Goals (unrecognized section and content) Goals may be documented in a n alternate sectionGoals may be documented in an alternate section (unrecognized sect ion and content) No Status Records Found INFORMATION SOURCE (unrecogn ized section and content) DATE CREATED AUTHOR 02/15/2024 [facility] Care Teams (unrecognized sec tion and content) Team Status: Active Member Role/Relationship Status Dates Dr. Mari Blackmon MD Primary Care Provider Active Team Status: Inactive Member Role/Relationship Status Dates Dr. Mari Blackmon MD Primary Care Provider Active Start: March 27, 2025 End: March 27, 2025 Dr. Mari Blackmon MD Attending Provider Active Start: March 27, 2025 End: March 27, 2025 FOR RECORDS PERTAINING TO PATIENTS WHO ARE OR HAVE BEEN ENROLLED IN A CHEMICAL DEPENDENCY/SUBSTANCEABUSE PROGRAM, SOME INFORMATION MAY BE OMITTED. This clinical summary was aggregated from multiple sources. Caution should be exercised in using it in the provision of clinical care. This summary normalizes information from multiple sources, and as a consequence, information in this document may materially change the coding, format and clinical context of patient data. In addition, data may be omitted in some cases. CLINICAL DECISIONS SHOULD BE BASED ON THE PRIMARY CLINICAL RECORDS. [facility] [employer] [facility]. provides no warranty or guarantee of the accuracy or completeness of information in this document.
== END | disposition home or self-care (01) ==
PROVIDERS: PCP Internal Medicine; Referring Provider Internal Medicine; Visit Provider Internal Medicine
DX: Z00.00 Encounter for general adult medical examination without abnormal findings (principal); E55.9 Vitamin D deficiency, unspecified; Z13.1 Encounter for screening for diabetes mellitus; F41.9 Anxiety disorder, unspecified; F32.A Depression, unspecified; Z13.220 Encounter for screening for lipoid disorders; R73.9 Hyperglycemia, unspecified
CPT/HCPCS: 36415; 80053; 80061; 82306; 83036; 84443; 85025